=== PATIENT | female | born 1995 | race Caucasian/White ===

== ENCOUNTER 2016-11-12 20:00 | Emergency (ER) | payer OTHER ==
[2016-11-12 20:19] VITALS: BP 129/76; PULSE 72; TEMP 99.3; BMI 28.9
[2016-11-12] MEDS ORDERED: IBUPROFEN 400 MG TABLET (FP) PO ONE ×2 (20:52→20:54)
--- NOTE | 2016-11-12 21:16 | PDOC ---
History of Present Illness - General Chief Complaint: Pain Stated Complaint: ACUTE PAIN Time Seen by Provider: 11/12/16 20:40 History Source: Patient - History of Present Illness Timing/Duration: other Past History - Past Medical History Allergies/Adverse Reactions: Allergies Allergy/AdvReac Type Severity Reaction Status Date / Time No Known Allergies Allergy Verified 11/12/16 20:19 Home Medications: Ambulatory Orders NK [No Known Home Medication] 11/12/16 Asthma: No Cancer: No Cardiac Disorders: No Diabetes: No HTN: No Seizures: No Thyroid Disease: No - Immunization History Immunization Up to Date: Yes - Psycho/Social/Smoking Cessation Hx Anxiety: No Suicidal Ideation: No Smoking Status: No Smoking History: Never smoked Have you smoked in the past 12 months: No Number of Cigarettes Smoked Daily: 0 Information on smoking cessation initiated: No Hx Alcohol Use: No Drug/Substance Use Hx: No Substance Use Type: None Hx Substance Use Treatment: No Review of Systems - Review of Systems Constitutional: No: Chills, Fever *Physical Exam - Vital Signs Last Vital Signs Temp Pulse Resp BP Pulse Ox 99.3 F 72 18 129/76 99 11/12/16 20:13 11/12/16 20:13 11/12/16 20:13 11/12/16 20:13 11/12/16 20:13 - Physical Exam General Appearance: Yes: Appropriately Dressed. No: Apparent Distress HEENT: positive: Normal Voice Neck: positive: Supple. negative: Lymphadenopathy (R), Lymphadenopathy (L) Respiratory/Chest: positive: Other (Breasts symmetrical w/ no skin changes, niple discharge, mass or lump palpated, no axilla lymphadneopathy). negative: Respiratory Distress Integumentary: positive: Dry, Warm Neurologic: positive: Fully Oriented, Alert, Normal Mood/Affect ED Treatment Course - Medications Given in the ED: ED Medications Discontinued Medications Generic Name Dose Route Start Last Admin Trade Name Freq PRN Reason Stop Dose Admin Ibuprofen 800 mg 11/12/16 20:52 11/12/16 20:58 Motrin - PO 11/12/16 20:53 800 mg ONCE ONE Administration Medical Decision Making - Medical Decision Making 11/12/16 21:07 1-year-old female, no significant history here with pain to the breast pain. Patient reports diffuse pain to left breast 2 days that is intermittent. No skin changes, lumps or nipple discharge. Not on OCPs and no trauma. No h/o similar pain. Not taken anything for pain. No sig fmhx See exam L breast pain No trauma Not breast feeding Not on OCPs No sig fmhx Stable w/ unremarkable beast exam Possibly fibrocystic breast disease Upreg neg in ED Dc w/ pain control and pmd or mixing supervisor f/u if pain persists 11/12/16 21:55 *DC/Admit/Observation/Transfer Diagnosis at time of Disposition: Breast pain - Discharge Dispostion Disposition: HOME Condition at time of disposition: Good - Patient Instructions Printed Discharge Instructions: DI for Breast Pain (Mastalgia) Additional Instructions: Varner examen de mama era normal hoy. Arpelar motrin para el dolor y siga con varner PMD o GREASER HELPER si el dolor persiste Print Language: TAMAZIGHT
== END 2016-11-12 21:58 | disposition home or self-care (01) ==
LOC: JERFT 20:00
DX: N64.4 Mastodynia (principal)
CPT/HCPCS: 84703; 99281-25

== ENCOUNTER 2017-12-13 23:21 | Emergency (ER) | payer OTHER ==
[2017-12-13 23:25] VITALS: BP 125/88; PULSE 87; TEMP 99.1; BMI 28.3
--- NOTE | 2017-12-13 23:34 | PDOC ---
History of Present Illness - General Chief Complaint: Headache Stated Complaint: HEADACHE Time Seen by Provider: 12/13/17 23:33 - History of Present Illness Initial Comments: 12/14/17 00:07 22 yo F w/ no sig pmh is here with a left sided pounding headache that comes and goes, began yesterday and has been getting progressively worse. She tried taking acetaminophen and excedrin but they did not help very much. The headache is associated with some mild Left sided lateral neck pain, dizziness which she says feels like she might fall down, and nausea but no emesis. She endorses having photophobia, and phonophobia. She also endorses having mild congestion along with mild SOB and difficulty breathing. She has been experiencing achy pains in her hands and feet since yesterday. She endorses dysuria and frequency. Denies urgency, hematuria, hesitancy, flank pain or genital pain. She also had one bout of diarrhea this morning. Denies any constipation. She denies having any recent fevers, chills, infections, or sick contacts. The headache was nor worst at onset and she says it is not the worst headache of her life. She has not experienced any visionary changes or floaters. She has no personal or family hx of migraines. Allergies: Spicy food. NKDA. Meds: She does not take any meds on a daily basis. 12/14/17 00:12 Past History - Past Medical History Allergies/Adverse Reactions: Allergies Allergy/AdvReac Type Severity Reaction Status Date / Time No Known Allergies Allergy Verified 12/13/17 23:25 Home Medications: Ambulatory Orders Acetaminophen 500 mg PO PRN #30 tablet 12/14/17 Nitrofurantoin 100 gm MC BID #10 powder 12/14/17 Nitrofurantoin 100 gm MC BID #10 powder 12/14/17 Asthma: No Cancer: No Cardiac Disorders: No COPD: No Diabetes: No HTN: No Seizures: No Thyroid Disease: No - Immunization History Immunization Up to Date: Yes - Suicide/Smoking/Psychosocial Hx Smoking Status: No Smoking History: Never smoked Have you smoked in the past 12 months: No Number of Cigarettes Smoked Daily: 0 Hx Alcohol Use: No Drug/Substance Use Hx: No Substance Use Type: None Hx Substance Use Treatment: No Review of Systems - Review of Systems Comments:: 12/14/17 00:16 CONSTITUTIONAL: Positive: generalized weakness, malaise Absent: fever, chills, diaphoresis, loss of appetite HEENT: Positive: rhinorrhea, nasal congestion, throat pain, throat swelling Absent: difficulty swallowing, mouth swelling, ear pain, eye pain, visual Changes CARDIOVASCULAR: Absent: chest pain, syncope, palpitations, irregular heart rate, lightheadedness , peripheral edema RESPIRATORY: Positive: cough, shortness of breath Absent: dyspnea with exertion, orthopnea, wheezing, stridor, hemoptysis GASTROINTESTINAL: Positive: Nausea, diarrhea Absent: abdominal pain, abdominal distension, vomiting, constipation, melena, hematochezia GENITOURINARY: Positive: dysuria, frequency Absent: urgency, hesitancy, hematuria, flank pain, genital pain MUSCULOSKELETAL: Positive: myalgia, arthralgia Absent: joint swelling SKIN: Absent: rash, itching, pallor HEMATOLOGIC/IMMUNOLOGIC: Absent: easy bleeding, easy bruising, lymphadenopathy, frequent infections ENDOCRINE: Absent: unexplained weight gain, unexplained weight loss, heat intolerance, cold intolerance NEUROLOGIC: Positive: Headache, dizziness Absent: focal weakness or paresthesias, unsteady gait, seizure, mental status changes, bladder or bowel incontinence PSYCHIATRIC: Absent: anxiety, depression, suicidal or homicidal ideation, hallucinations. *Physical Exam - Vital Signs Last Vital Signs Temp Pulse Resp BP Pulse Ox 99.1 F 87 18 125/88 98 12/13/17 23:22 12/13/17 23:22 12/13/17 23:22 12/13/17 23:22 12/13/17 23:22 - Physical Exam Comments: 12/14/17 00:19 GENERAL: Patient is lying in the bed trying to avoid the light bc she has a headache. Well developed, well nourished. Awake and alert. HEENT: posterior oropharynx is erythematous and has some palatal petechia on the hard palate. Normocephalic, atraumatic. PERRLA, EOMI. No conjunctival pallor. Sclera are non- icteric. Moist mucous membranes. NECK: There are a few small bilateral painless lymphadenopathy appreciated. Supple. Full ROM. No JVD. No thyromegaly. CARDIOVASCULAR: Regular rate and rhythm. No murmurs, rubs, or gallops. Distal pulses are 2+ and symmetric. PULMONARY: No evidence of respiratory distress. Lungs clear to auscultation bilaterally. No wheezing, rales or rhonchi. ABDOMINAL: Soft. Non-tender. Non-distended. No rebound or guarding. No organomegaly. Normoactive bowel sounds. MUSCULOSKELETAL Normal range of motion at all joints. No bony deformities or tenderness. No CVA tenderness. EXTREMITIES: No rashes on the hands or feet. No cyanosis. No clubbing. No edema. No calf tenderness. SKIN: Warm and dry. Normal capillary refill. No rashes, including hands or feet. No jaundice. NEUROLOGICAL: Alert, awake, appropriate. Cranial nerves 2-12 intact. No deficits to light touch in face, upper extremities and lower extremities. No motor deficits in the in face, upper extremities and lower extremities. Normoreflexic in the upper and lower extremities. Normal speech. Gait is normal without ataxia. PSYCHIATRIC: Cooperative. Good eye contact. Appropriate mood and affect. 12/14/17 00:29 ED Treatment Course - LABORATORY CBC & Chemistry Diagram: 12/14/17 00:30 12/14/17 00:30 Medical Decision Making - Medical Decision Making 12/14/17 00:31 22 yo F w/ no sig pmh is here with a left sided pounding headache, photophobia, phonophobia, dizziness, neck pain, SOB, congestion, mild difficulty breathing, nausea, dysuria, frequency, and diarrhea. DD: Viral meningitis, URI, other viral exanthema, tension headache, migraine, other infection. If this is infectious in nature it is more likely viral than bacterial given patients overall good appearance, +photophobia, lack of toxic symptoms, or bad pain. Possible etiologies - cocksackie, influenza, URI Plan: Cbc, Cmp, Hcg, Ua/Uc, IVF, APAP, rapid influenza, re-assess. Patient feels much better after 1000 acetaminophen. Cbc ahowed an elevated WBC at 12.3 Urine showed a mild possible UTI DCing patient with prescriptions for nitrofurantoin, extra strength tylenol, and strict return precautions. 12/14/17 00:33 12/14/17 01:24 *DC/Admit/Observation/Transfer Diagnosis at time of Disposition: Acute viral pharyngitis, Viral meningitis - Discharge Dispostion Disposition: HOME Condition at time of disposition: Improved Decision to Admit order: No - Prescriptions Prescriptions: Acetaminophen 500 mg PO PRN #30 tablet Nitrofurantoin 100 gm MC BID #10 powder Nitrofurantoin 100 gm MC BID #10 powder - Referrals Referrals: Abhishek Brown MD [Staff Physician] - - Patient Instructions Printed Discharge Instructions: Viral Pharyngitis, Viral Meningitis, Urinary Tract Infection, DI for Viral Meningitis -- Child, Migraine -- Child Additional Instructions: Please goto the pharmacy and tile picker the Meds we are sending there. Take the Antibiotics for your infection and take tylenol for pain control. Come back to the Emergency room if your headache gets worse, you develop a fever, start vomiting, have severe neck pain, or have any other concerns. Print Language: IRANIAN - Post Discharge Activity
[2017-12-14] MEDS ORDERED: ACETAMINOPHEN 1000 MG/100 ML VIAL (NON FORMULARY) IVPB ONE (00:02)
[2017-12-14] MEDS ORDERED: SODIUM CHLORIDE 0.9% 500 ML INFUS.BAG IV ONE (00:02)
[2017-12-14] MEDS ORDERED: ACETAMINOPHEN INJECTION 100 ML IVPB ONE (00:14)
[2017-12-14 00:30] LABS: URINE APPEARANCE CLEAR; URINE BILIRUBIN NEGATIVE (<2.0 mg/dL); URINE COLOR STRAW; URINE GLUCOSE (UA) NEGATIVE (NEGATIVE); URINE KETONE NEGATIVE (NEGATIVE); URINE LEUK ESTERASE TRACE (NEGATIVE); URINE NITRITE NEGATIVE (NEGATIVE); URINE PROTEIN NEGATIVE (NEGATIVE); URINE UROBILINOGEN NEGATIVE mg/dL (0.2-1.0)
[2017-12-14 00:34] LABS: EPI CELLS FEW /HPF (FEW); URINE BACTERIA RARE /hpf (NONE SEEN); URINE MUCUS RARE
[2017-12-14 00:37] LABS: BASO % 0.5 % (0-2.0); EOS % 3.1 % (0-4.5); HEMATOCRIT 40.9 % (32.4-45.2); HEMOGLOBIN 13.9 GM/dL (10.7-15.3); LYMPH % 20.9 % (8-40); MCH 29.9 pg (25.7-33.7); MCHC 33.9 g/dl (32.0-36.0); MEAN CELL VOLUME 88.1 fl (80-96); MEAN PLT VOLUME 8.1 fl (7.5-11.1); MONO % 7.2 % (3.8-10.2); NEUT % 68.3 % (42.8-82.8); PLATELET COUNT 266 K/MM3 (134-434); RBC 4.63 M/mm3 (3.60-5.2); WHITE BLOOD COUNT 12.3 K/mm3 (4.0-10.0)
--- NOTE | 2017-12-14 00:47 | PDOC ---
Attending Attestation - [facility] HPI: 12/14/17 01:09 The patient is a 22 year old female with a pmhx of migraines who presents to the ED with usual left sided headache with intermittent throbbing which started yesterday. She states when the headache is exacerbated, the pain radiates to the left side of her neck and trapezius. Patient reports associated symptoms of sore throat, left sided neck stiffness, dysuria, urinary frequency, shortness of breath, nausea without emesis, and 1 episode of diarrhea. She also reports associated symptoms phonophobia and photophobia, and states she usually wears glasses, but has not worn them for the past 2 days. Patient also states she did not eat food today. The patient is a home health aid. LMP was a few weeks ago which is irregular secondary to IUD in arm. The patient denies heavy lifting, chest pain, back pain, fever, chills, vomiting , recent sick contact, infections, constipation, and hematuria. - Physicial Exam PE: GENERAL: Well developed, well nourished. Awake and alert. No acute distress. HEENT: (+)Posterior oropharynx erythematous. (+)Palatal petechiae Normocephalic, atraumatic. PERRLA, EOMI. No conjunctival pallor. Sclera are non- icteric. Moist mucous membranes. NECK: Supple. Full ROM. No JVD. Carotid pulses 2+ and symmetric, without bruits. No thyromegaly. No lymphadenopathy. CARDIOVASCULAR: Regular rate and rhythm. No murmurs, rubs, or gallops. Distal pulses are 2+ and symmetric. PULMONARY: No evidence of respiratory distress. Lungs clear to auscultation bilaterally. No wheezing, rales or rhonchi. ABDOMINAL: Soft. Non-tender. Non-distended. No rebound or guarding. No organomegaly. Normoactive bowel sounds. MUSCULOSKELETAL Normal range of motion at all joints. No bony deformities or tenderness. No CVA tenderness. EXTREMITIES: No cyanosis. No clubbing. No edema. No calf tenderness. SKIN: Warm and dry. Normal capillary refill. No rashes. No jaundice. NEUROLOGICAL: Alert, awake, appropriate. Cranial nerves 2-12 intact. No deficits to light touch and temperature in face, upper extremities and lower extremities. No motor deficits in the in face, upper extremities and lower extremities. Normoreflexic in the upper and lower extremities. Normal speech. Toes are down- going bilaterally. Gait is normal without ataxia. PSYCHIATRIC: Cooperative. Good eye contact. Appropriate mood and affect. Neuro normal <Brenda Steward - Last Filed: 12/14/17 01:09> - Resident Resident Name: Sim Frost - ED Attending Attestation I have performed the following: I have examined & evaluated the patient, The case was reviewed & discussed with the resident, I agree w/resident's findings & plan - Medical Decision Making 12/14/17 01:16 Labs are normal and pt is feeling better; she will be discharged home. She was asked to return if she has a high fever or worsening headache. <Francheska Domínguez - Last Filed: 12/14/17 01:17> Attestations - Attestations Documentation prepared by Brenda Steward, acting as director of graduate medical education for Francheska Domínguez MD. <Brenda Steward - Last Filed: 12/14/17 01:09>
[2017-12-14 01:08] LABS: ALBUMIN 4.1 g/dl (3.4-5.0); ANION GAP 9 MMOL/L (8-16); BILIRUBIN,TOTAL 0.2 mg/dL (0.2-1.0); BLOOD UREA NITROGEN 11 mg/dL (7-18); CHLORIDE 104 mmol/L (98-107); CO2 27 mmol/L (21-32); CREATININE 0.7 mg/dL (0.55-1.3); GLUCOSE,RANDOM 89 mg/dL (74-106); SGPT/ALT 22 U/L (13-61); SODIUM 140 mmol/L (136-145)
[2017-12-14 01:10] LABS: ALK PHOS 106 U/L (45-117)
[2017-12-14 01:13] LABS: POTASSIUM 4.5 mmol/L (3.5-5.1)
[2017-12-14 01:14] LABS: SGOT/AST 22 U/L (15-37)
== END 2017-12-14 01:24 | disposition home or self-care (01) ==
LOC: JER 23:21
PROC: 3E0337Z Introduction of Electrolytic and Water Balance Substance into Peripheral Vein, Percutaneous Approach (ICD-10-PCS; principal; 2017-12-13)
PROC: 3E033NZ Introduction of Analgesics, Hypnotics, Sedatives into Peripheral Vein, Percutaneous Approach (ICD-10-PCS; 2017-12-13)
DX: J02.8 Acute pharyngitis due to other specified organisms (principal); A87.9 Viral meningitis, unspecified
CPT/HCPCS: 36415; 80053; 81003; 81015; 84702; 84703; 85025; 87086; 87804; 96374; 99282-25; J0131

== ENCOUNTER 2018-05-02 23:13 | Emergency (ER) | payer OTHER ==
[2018-05-02 23:29] VITALS: BP 129/84; PULSE 82; TEMP 98.9; BMI 28.3
[2018-05-03] MEDS ORDERED: KETOROLAC TROMETHAMINE 60 MG/2 ML VIAL IM ONE (01:00)
[2018-05-03] MEDS ORDERED: LIDOCAINE 5% TOPICAL PATCH TP ONE (01:00)
[2018-05-03] MEDS ORDERED: LIDOCAINE 5% TOPICAL PATCH ONE (01:08)
[2018-05-03] MEDS ORDERED: KETOROLAC TROMETHAMINE 60 MG/2 ML VIAL ONE (01:08)
--- NOTE | 2018-05-03 01:09 | PDOC ---
History of Present Illness - General Chief Complaint: Pain Stated Complaint: RIGHT ARM PAIN Time Seen by Provider: 05/03/18 00:52 History Source: Patient Exam Limitations: No Limitations - History of Present Illness Initial Comments: 05/03/18 01:03 Patient is a 23-year-old female that no past medical history here with complaint of right shoulder pain that radiates down to her wrist which started yesterday worsening today. States the pain is a pulsating 8.5/10 which is worse with raising her arm. States injury to her wrist one year ago with a fall but no injury to her shoulder. She has taken Tylenol and Motrin but no meds taken today. Patient is right-hand dominant. LMP 03/19/18 reg, contraction Norplant PMD: Does not remember the name PMHX: Negative PSOCHX: neg drug, etoh, cig ALL: NKDA GENERAL/CONSTITUTIONAL: [No fever or chills. No weakness. No weight change.] HEAD, EYES, EARS, NOSE AND THROAT: [No change in vision. No ear pain or discharge. No sore throat.] CARDIOVASCULAR: [No chest pain or shortness of breath.] RESPIRATORY: [No cough, wheezing, or hemoptysis.] GASTROINTESTINAL: [No nausea, vomiting, diarrhea or constipation. No rectal bleeding.] GENITOURINARY: [No dysuria, frequency, or change in urination.] MUSCULOSKELETAL: (+) joint pain (-) muscle swelling or pain. No neck or back pain.] SKIN AND BREASTS: [No rash or easy bruising.] NEUROLOGIC: [No headache, vertigo, loss of consciousness, or loss of sensation.] PSYCHIATRIC: [No depression or anxiety.] ENDOCRINE: [No increased thirst. No abnormal weight change.] HEMATOLOGIC/LYMPHATIC: [No anemia, easy bleeding, or history of blood clots.] ALLERGIC/IMMUNOLOGIC: [No hives or skin allergy. No latex allergy.] GENERAL: [The patient is awake, alert, and fully oriented, in no acute distress. ] HEAD: [Normal with no signs of trauma.] EYES: [Pupils equal, round and reactive to light, extraocular movements intact, sclera anicteric, conjunctiva clear.] ENT: [Ears normal, nares patent, oropharynx clear without exudates. Moist mucous membranes.] NECK: [Normal range of motion, supple without lymphadenopathy, JVD, or masses.] LUNGS: [Breath sounds equal, clear to auscultation bilaterally. No wheezes, and no crackles.] HEART: [Regular rate and rhythm, normal S1 and S2 without murmur, rub.] ABDOMEN: [Soft, nontender, normoactive bowel sounds. No guarding, no rebound. No masses.] EXTREMITIES: decreased range of motion to the right shoulder, (+) tenderness to palp over the right shoulder and arm, wrist, no swelling noted, no edema. No clubbing or cyanosis. No cords, erythema, or tenderness.] NEUROLOGICAL: [Cranial nerves II through XII grossly intact. Normal speech, normal gait.] PSYCH: [Normal mood, normal affect.] SKIN: no bruising, no swelling, no rash Past History - Past Medical History Allergies/Adverse Reactions: Allergies Allergy/AdvReac Type Severity Reaction Status Date / Time No Known Allergies Allergy Verified 05/02/18 23:21 Home Medications: Ambulatory Orders Acetaminophen 500 mg PO PRN #30 tablet 12/14/17 Nitrofurantoin 100 gm MC BID #10 powder 12/14/17 Nitrofurantoin 100 gm MC BID #10 powder 12/14/17 Cyclobenzaprine HCl [Flexeril -] 10 mg PO TID #21 tablet 05/03/18 Ibuprofen [Motrin -] 600 mg PO QID #28 tablet 05/03/18 Oxycodone HCl/Acetaminophen [Percocet 5/325 -] 1 tab PO Q4H #20 tablet MDD 6 07/16 Asthma: No Cancer: No Cardiac Disorders: No COPD: No Diabetes: No HTN: No Seizures: No Thyroid Disease: No Other medical history: Pt denies - Immunization History Immunization Up to Date: Yes - Suicide/Smoking/Psychosocial Hx Smoking Status: No Smoking History: Never smoked Have you smoked in the past 12 months: No Number of Cigarettes Smoked Daily: 0 Information on smoking cessation initiated: No Hx Alcohol Use: No Drug/Substance Use Hx: No Substance Use Type: None Hx Substance Use Treatment: No *Physical Exam - Vital Signs Last Vital Signs Temp Pulse Resp BP Pulse Ox 98.9 F 82 18 129/84 100 05/02/18 23:21 05/02/18 23:21 05/02/18 23:21 05/02/18 23:21 05/02/18 23:21 Moderate Sedation - Procedure Monitoring Vital Signs: Procedure Monitoring Vital Signs Temperature 98.9 F 05/02/18 23:21 Pulse Rate 82 05/02/18 23:21 Respiratory Rate 18 05/02/18 23:21 Blood Pressure 129/84 05/02/18 23:21 O2 Sat by Pulse Oximetry (%) 100 05/02/18 23:21 ED Treatment Course - RADIOLOGY Radiology Studies Ordered: Category Date Time Status SHOULDER-RIGHT [RAD] Stat Radiology 05/03/18 01:00 Ordered WRIST- RIGHT [RAD] Stat Radiology 05/03/18 01:00 Ordered Medical Decision Making - Medical Decision Making 05/03/18 01:03 Patient is a 23-year-old female that no past medical history here with complaint of right shoulder pain that radiates down to her wrist which started yesterday worsening today. States the pain is a pulsating 8.5/10 which is worse with raising her arm. States injury to her wrist one year ago with a fall but no injury to her shoulder. She has taken Tylenol and Motrin but no meds taken today. LMP 03/19/18 reg, contraction Norplant. DDX tendinitis, ligamentous strain, inflammatory arthritis xray, pain meds Toradol 60 mg IM and Lidoderm patch xray shoudler and wrist neg for fracture or djd. no STS 0250 Patient complains of pain will give Percocet by mouth and discharged I discussed the physical exam findings, ancillary test results and final diagnoses with the patient. I answered all of the patient's questions. The patient was satisfied with the care received and felt comfortable with the discharge plan and treatment plan. The Patient agrees to follow up with the primary care physician within 24-72 hours. *DC/Admit/Observation/Transfer Diagnosis at time of Disposition: Shoulder pain, acute Qualifiers: Laterality: right Qualified Code(s): M25.511 - Pain in right shoulder Wrist pain, acute Qualifiers: Laterality: right Qualified Code(s): M25.531 - Pain in right wrist - Discharge Dispostion Disposition: HOME Condition at time of disposition: Stable - Prescriptions Prescriptions: Cyclobenzaprine HCl [Flexeril -] 10 mg PO TID #21 tablet Ibuprofen [Motrin -] 600 mg PO QID #28 tablet Oxycodone HCl/Acetaminophen [Percocet 5/325 -] 1 tab PO Q4H #20 tablet MDD 6 - Referrals Referrals: Jackson Parker MD [Staff Physician] - - Patient Instructions Printed Discharge Instructions: DI for Shoulder Pain, DI for Wrist Pain Additional Instructions: Your Discharge Instructions: You must call primary care physician within 24 hours to arrange follow-up. Return to the Emergency Department with any new, persistent or worsening symptoms, for fever, chills, SOB, dizziness or any other concerning changes that may occur. You must follow-up with orthopedist for further evaluation. Wear the sling as needed however you need to arrange the joint as much as you can. Print Language: GABONESE - Post Discharge Activity Forms/Work/School Notes: Back to Work
[2018-05-03] MEDS ORDERED: CYCLOBENZAPRINE HCL 10 MG TABLET (FP) PO ONE (03:04)
[2018-05-03] MEDS ORDERED: CYCLOBENZAPRINE HCL 10 MG TABLET (FP) ONE (03:12)
[2018-05-03] MEDS ORDERED: LIDOCAINE PATCH REMOVAL MC SCH (22:00)
== END 2018-05-03 03:20 | disposition home or self-care (01) ==
LOC: JER 23:13
PROC: 3E0233Z Introduction of Anti-inflammatory into Muscle, Percutaneous Approach (ICD-10-PCS; principal; 2018-05-02)
DX: M79.601 Pain in right arm (principal); M25.511 Pain in right shoulder; M25.531 Pain in right wrist
CPT/HCPCS: 73030-TC-RT-FY; 73110-TC-RT-FY; 84703; 99281-25

== ENCOUNTER 2019-06-19 14:18 | Emergency (ER) | payer OTHER ==
[2019-06-19 14:27] VITALS: BP 143/90; PULSE 85; TEMP 99.4; BMI 29.2
--- NOTE | 2019-06-19 14:55 | PDOC ---
History of Present Illness - General Chief Complaint: ,Possible Stated Complaint: ? PREG Time Seen by Provider: 06/19/19 14:37 History Source: Patient Exam Limitations: No Limitations - History of Present Illness Initial Comments: 06/19/19 14:52 HISTORY OF PRESENT ILLNESS: This a 24-year-old G3, P2 who presents emergency department with dysuria after having a positive home test. Patient is unsure of the reliability of the test as she last had her period in January 2019 and had implantable control performed at that time. Patient reports she has been sexually active and there is a possibility of . She denies any vaginal bleeding, abdominal pain, nausea, vomiting, hematuria, rectal bleeding, constipation, diarrhea. No recent travel or sick contacts. PAST MEDICAL HISTORY: Denies past medical history SURGICAL HISTORY: Denies ALLERGIES: No known drug allergies REVIEW OF SYSTEMS General/Constitutional: Denies fever or chills. Denies weakness, weight change. HEENT: Denies change in vision. Denies ear pain or discharge. Denies sore throat. Cardiovascular: Denies chest pain or shortness of breath. Respiratory: Denies cough, wheezing, or hemoptysis. Gastrointestinal: Denies nausea, vomiting, diarrhea or constipation. Denies rectal bleeding. Genitourinary: See HPI Musculoskeletal: Denies joint or muscle swelling or pain. Denies neck or back pain. Skin and breasts: Denies rash or easy bruising. Neurologic: Denies headache, vertigo, loss of consciousness, or loss of sensation. Psychiatric: Denies depression or anxiety. Endocrine: Denies increased thirst. Denies abnormal weight change. Hematologic/Lymphatic: Denies anemia, easy bleeding, or history of blood clots. Allergic/Immunologic: Denies hives or skin allergy. Denies latex allergy. PHYSICAL EXAM General Appearance: Well-appearing, appropriately dressed. No apparent distress, no intoxication. Gastrointestinal/Abdominal: Normal bowel sounds. Abdomen soft, non-distended. No tenderness or rebound tenderness. No organomegaly, pulsatile mass, guarding, hernia, hepatomegaly, splenomegaly. Musculoskeletal/Extremities: Normal inspection. FROM of all extremities, normal capillary refill. Pelvis Stable. No CVA tenderness. No tenderness to extremities, pedal edema, swelling, erythema or deformity. Past History - Past Medical History Allergies/Adverse Reactions: Allergies Allergy/AdvReac Type Severity Reaction Status Date / Time No Known Allergies Allergy Verified 06/19/19 14:26 Home Medications: Ambulatory Orders Acetaminophen 500 mg PO PRN #30 tablet 12/14/17 Nitrofurantoin 100 gm MC BID #10 powder 12/14/17 Nitrofurantoin 100 gm MC BID #10 powder 12/14/17 Cyclobenzaprine HCl [Flexeril -] 10 mg PO TID #21 tablet 05/03/18 Ibuprofen [Motrin -] 600 mg PO QID #28 tablet 05/03/18 Oxycodone HCl/Acetaminophen [Percocet 5/325 -] 1 tab PO Q4H #20 tablet MDD 6 05/03/18 95/Iron Fum/Folic/Dha [ + Dha Combo Pack] 1 each PO DAILY #30 combo..pkg 06/19/19 Asthma: No Cancer: No Cardiac Disorders: No COPD: No Diabetes: No HTN: No Seizures: No Thyroid Disease: No - Immunization History Immunization Up to Date: Yes - Psycho Social/Smoking Cessation Hx Smoking Status: No Smoking History: Never smoked Have you smoked in the past 12 months: No Number of Cigarettes Smoked Daily: 0 Hx Alcohol Use: No Drug/Substance Use Hx: No Substance Use Type: None Hx Substance Use Treatment: No *Physical Exam - Vital Signs Last Vital Signs Temp Pulse Resp BP Pulse Ox 99.4 F 85 18 143/90 99 06/19/19 14:23 06/19/19 14:23 06/19/19 14:23 06/19/19 14:23 06/19/19 14:23 Medical Decision Making - Medical Decision Making 06/19/19 14:54 A/P: 24-year-old woman with dysuria and positive home testing Last menstrual period-January 2019 Patient with implantable control since then Positive for test Negative CVA tenderness Abdominal exam is unremarkable Urinalysis, urine culture, urine Reassess 06/19/19 15:10 Laboratory Tests 06/19/19 14:59 Urine Color Yellow Urine Appearance Clear Urine pH 6.5 Ur Specific [place] 1.021 Urine Protein Negative Urine Glucose (UA) Negative Urine Ketones Negative Urine Blood Negative Urine Nitrite Negative Urine Bilirubin Negative Urine Urobilinogen 0.2 Ur Leukocyte Esterase Negative Urine HCG, Qual Positive Urinalysis is negative I will discharge home to have patient follow-up with a REGIONAL RECRUITER for continued evaluation. I will provide a prescription for vitamins until patient is able to be evaluated by her RAILROAD AUDITOR. I discussed the physical exam findings, ancillary test results and final diagnoses with the patient. I answered all of the patient's questions. The patient was satisfied with the care received and felt comfortable with the discharge plan and treatment plan. The patient will call their primary care physician within 24 hours to arrange follow-up and will return to the Emergency Department with any new, persistent or worsening symptoms. Portions of this note have been documented using voice recognition software. As a result, errors may occur in the city wellness coordinator process. Effort has been made to correct all grammatical and city wellness coordinator error, but some may have been missed which may produce sporadic inaccurate city wellness coordinator or nonsensical phrases. Discharge - Discharge Information Problems reviewed: Yes Clinical Impression/Diagnosis: Qualifiers: Weeks of gestation: unspecified Qualified Code(s): Z34.90 - Encounter for supervision of normal , unspecified, unspecified trimester Condition: Stable Disposition: HOME - Admission No - Additional Discharge Information Prescriptions: 95/Iron Fum/Folic/Dha [ + Dha Combo Pack] 1 each PO DAILY #30 combo..pkg - Follow up/Referral Referrals: Joanne Rudd [Primary Care Provider] - Jeremias Kam MD [Staff Physician] - - Patient Discharge Instructions Additional Instructions: Take your vitamins. Keep well-hydrated. Avoid tobacco and alcohol as well as illegal drugs. Make an appointment with your RAILROAD AUDITOR for reevaluation. Return to the emergency department immediately for severe pain, vaginal bleeding that requires more than 2 pads per hour or for any other symptoms. Thank you very much for choosing us to provide your emergent health care needs. [place] lalo vitaminas prenatales. Mantngase teresa hidratado. Evite el tabaco y el alcohol, as fidencio las drogas ilegales. Freda eloina emory con varner obstetra/gineclogo para varner reevaluacin. Regrese al departamento de emergencias inmediatamente para el dolor intenso, sangrado vaginal que requiere ms de 2 almohadillas por hora o para cualquier otro sntoma. Muchas christina por elegirnos para proporcionar lalo necesidades de atencin mdica emergentes. - Post Discharge Activity
[2019-06-19 15:03] LABS: HCG,QUALITATIVE URINE Positive; PH,URINE 6.5 (5.0-8.0); URINE APPEARANCE CLEAR; URINE BILIRUBIN NEGATIVE (NEGATIVE); URINE COLOR YELLOW; URINE GLUCOSE (UA) NEGATIVE (NEGATIVE); URINE KETONE NEGATIVE (NEGATIVE); URINE LEUK ESTERASE NEGATIVE (NEGATIVE); URINE NITRITE NEGATIVE (NEGATIVE); URINE PROTEIN NEGATIVE (NEGATIVE); URINE UROBILINOGEN 0.2 mg/dL (0.2-1.0)
== END 2019-06-19 15:13 | disposition home or self-care (01) ==
LOC: JER 14:18 → JERFT 14:18
DX: O26.899 Other specified pregnancy related conditions, unspecified trimester (principal); R30.0 Dysuria; Z3A.00 Weeks of gestation of pregnancy not specified; Z97.5 Presence of (intrauterine) contraceptive device
CPT/HCPCS: 81003; 84703; 87086; 99283-25

== ENCOUNTER 2023-01-24 11:03 | Emergency (ER) | payer OTHER ==
[2023-01-24 11:08] VITALS: BP 124/85; PULSE 89; RESP 20; TEMP 99; BMI 29.1
[2023-01-24] MEDS ORDERED: KETOROLAC TROMETHAMINE 30 MG/1 ML VIAL IM ONE (12:36)
[2023-01-24] MEDS ORDERED: KETOROLAC TROMETHAMINE 30 MG/1 ML VIAL ONE (12:39)
== END 2023-01-24 14:53 | disposition home or self-care (01) ==
LOC: JERFT 11:03
PROC: 3E0333Z Introduction of Anti-inflammatory into Peripheral Vein, Percutaneous Approach (ICD-10-PCS; principal; 2023-01-24)
DX: M54.9 Dorsalgia, unspecified (principal)
CPT/HCPCS: 72070-TC-FY; 99284-25

== ENCOUNTER 2023-05-18 09:31 | Emergency (ER) | payer OTHER ==
[2023-05-18 09:35] VITALS: BP 118/58; PULSE 98; RESP 20; TEMP 99; BMI 30.5
[2023-05-18] MEDS ORDERED: diphenhydrAMINE HCL 25 MG CAPSULE (FP) PO ONE ×2 (10:13→10:14)
[2023-05-18] MEDS: diphenhydrAMINE HCL 25 MG CAPSULE (FP) PO ONE (10:16)
== END 2023-05-18 10:17 | disposition home or self-care (01) ==
LOC: JERFT 09:31
DX: R21 Rash and other nonspecific skin eruption (principal); L29.9 Pruritus, unspecified
CPT/HCPCS: 99283-25